=== PATIENT | female | born 1975 | race Caucasian/White ===

== ENCOUNTER 2019-10-28 07:29 | Outpatient (CLI) | payer BC, OTHER ==
[2019-10-29 14:16] LABS: SARS-CoV-2 MS2 Positive; SARS-CoV-2 N Gene Negative; SARS-CoV-2 S Gene Negative; SARS-CoV-2 by NAA Not Detected (NotDetected); SARS-CoV-2 orf1ab Negative
--- NOTE | 2019-10-29 15:45 | EKG ---
Test Reason : Blood Pressure : / mmHG Vent. Rate : 086 BPM Atrial Rate : 086 BPM P-R Int : 152 ms QRS Dur : 084 ms QT Int : 344 ms P-R-T Axes : 033 -06 035 degrees QTc Int : 411 ms Normal sinus rhythm Inferior infarct , age undetermined , age undetermined Abnormal ECG Confirmed by LARA DOMINGUEZ ([id number]) on 10/29/2019 3:45:30 PM Referred By: ADRIANNE Confirmed By:LARA DOMINGUEZ
== END 2019-10-28 07:30 | disposition home or self-care (01) ==
LOC: EDSEX → LABBT 07:29
PROVIDERS: ATTEND Specialist
DX: Z01.818 Encounter for other preprocedural examination (principal); Z11.59 Encounter for screening for other viral diseases; E04.1 Nontoxic single thyroid nodule
CPT/HCPCS: 87635; 93005; 93010; U0003